=== PATIENT | female | born 1990 | race Caucasian/White ===

== ENCOUNTER 2022-01-14 12:00 | Outpatient (CLI) | payer OTHER | END 2022-01-14 12:01 | disposition home or self-care (01) | LOC: CSHLAB 12:00 | PROVIDERS: ATTEND Obstetrics & Gynecology | DX: Z20.822 Contact with and (suspected) exposure to COVID-19 (principal) | CPT/HCPCS: 87811 ==

== ENCOUNTER 2022-01-18 10:56 | Day surgery (SDC) | payer OTHER ==
[2022-01-18] MEDS ORDERED: hydrALAZINE 20 MG/ML VIAL SLOW IVP PRN (11:49)
== END 2022-01-18 13:34 | disposition home or self-care (01) ==
LOC: CSHLD/OP 10:56
PROVIDERS: ATTEND Obstetrics & Gynecology
DX: O35.9XX0 Maternal care for (suspected) fetal abnormality and damage, unspecified, not applicable or unspecified (principal); O24.419 Gestational diabetes mellitus in pregnancy, unspecified control; Z3A.37 37 weeks gestation of pregnancy; Z87.442 Personal history of urinary calculi; Z98.890 Other specified postprocedural states
CPT/HCPCS: 36416; 76819; 99282

== ENCOUNTER 2022-03-11 09:57 | Day surgery (SDC) | payer OTHER ==
[2022-03-08 09:44] LABS: Hemoglobin 13.9 g/dL (12.0-15.5); Mean Corpuscular HGB CONC 33.6 g/dL (32.0-36.0); Mean Corpuscular Hemoglobin 28.8 pg (27.0-33.0); Mean Corpuscular Volume 85.7 fl (81.6-98.3); Mean Platelet Volume 8.8 fl (7.4-10.4); Platelet Count 418 10x3/uL (150-450); RBC Distribution Width 12.5 % (11.5-14.5); Red Blood Cell (RBC) Count 4.83 10x6/uL (3.90-5.03)
[2022-03-08 10:22] LABS: BHCG - Serum Negative (NEGATIVE); Pregs Control Background? CLEAR/WHITE (CLR/WHITE); Pregs Control Bar Appear? YES (CONTROL BAR)
[2022-03-09 14:20] VITALS: BMI 32.1
[2022-03-11] MEDS ORDERED: Gabapentin 300 MG CAP ONE (10:13)
[2022-03-11] MEDS ORDERED: CeleCOXIB 100 MG CAP ONE (10:14)
[2022-03-11] MEDS ORDERED: Famotidine/PF 20 mg/2ml Vial ONE (10:14)
[2022-03-11] MEDS ORDERED: Bupivacaine PF 0.5% 30 ML VIAL ONE (11:49)
[2022-03-11] MEDS ORDERED: EPINEPHrine 1 MG/ML AMP ONE (11:49)
[2022-03-11] MEDS ORDERED: CEFAZOLIN 2 GM VIAL ONE (11:59)
[2022-03-11] MEDS ORDERED: SUGAMMADEX SODIUM 200 MG/2 ML VIAL ONE (12:08)
[2022-03-11] MEDS ORDERED: HYDROmorphone 0.5 MG/0.5 ML SYRINGE ONE (12:08)
[2022-03-11] MEDS ORDERED: Lidocaine 1% PF 5 ML VIAL ONE (12:10)
[2022-03-11] MEDS ORDERED: Rocuronium Bromide 10 MG/ML (10ML VIAL) ONE (12:10)
[2022-03-11] MEDS ORDERED: Midazolam HCl 2 mg/2 ml Vial ONE (12:11)
[2022-03-11] MEDS ORDERED: Ketorolac Tromethamine 30 MG/ML VIAL ONE (12:47)
[2022-03-11] MEDS ORDERED: Ondansetron PF 4 MG/2 ML Vial ONE (12:47)
[2022-03-11] MEDS ORDERED: Dexamethasone 4 mg/ml Vial ONE (12:47)
[2022-03-11] MEDS ORDERED: Meperidine HCl/PF 25 MG/ML VIAL ONE (13:02)
== END 2022-03-11 14:25 | disposition home or self-care (01) ==
LOC: CSHSDC 09:57
PROVIDERS: ATTEND Obstetrics & Gynecology
PROC: 0UB74ZZ Excision of Bilateral Fallopian Tubes, Percutaneous Endoscopic Approach (ICD-10-PCS; principal; 2022-03-11)
DX: Z30.2 Encounter for sterilization (principal); Z15.01 Genetic susceptibility to malignant neoplasm of breast; F32.A Depression, unspecified; F41.9 Anxiety disorder, unspecified; Z79.899 Other long term (current) drug therapy; Z91.040 Latex allergy status; Z98.890 Other specified postprocedural states; Z01.818 Encounter for other preprocedural examination
CPT/HCPCS: 84703; 85027; 86850; 86900; 86901; 88305; J0171; J1100; J1170; J1885; J2175; J2250; J2405; S0020; S0028